=== PATIENT | male | born 2000 | race Caucasian/White ===

== ENCOUNTER 2020-03-31 12:33 | Emergency (ER) | payer OTHER ==
[~2020-03-31] VITALS: Ht 165.1 cm; Wt 72.6 kg
[2020-03-31 12:52] VITALS: BP 152/85
[2020-03-31] MEDS ORDERED: DIVA250T PO (13:55)
[2020-03-31] MEDS ORDERED: ESCI10TA PO (13:55)
== END 2020-03-31 14:05 | disposition home or self-care (01) ==
LOC: ER 12:38
DX: F41.9 Anxiety disorder, unspecified (principal); Z76.0 Encounter for issue of repeat prescription; F32.9 Major depressive disorder, single episode, unspecified; Z79.899 Other long term (current) drug therapy

== ENCOUNTER 2024-03-15 20:04 | Emergency (ER) | payer OTHER ==
[~2024-03-15] VITALS: Ht 165.1 cm; Wt 86.2 kg
[~2024-03-15 20:04] MED LIST: DIVA250T PO; ESCI10TA PO
[2024-03-15 20:12] VITALS: BP 158/101; TEMP 98; O2SAT 98
== END 2024-03-15 20:30 | disposition left against medical advice (07) ==
LOC: ER 20:10
DX: S01.85XA Open bite of other part of head, initial encounter (principal); W54.0XXA Bitten by dog, initial encounter; Y93.89 Activity, other specified; Y92.89 Other specified places as the place of occurrence of the external cause; Y99.8 Other external cause status; Z53.21 Procedure and treatment not carried out due to patient leaving prior to being seen by health care provider